=== PATIENT | male | born 1965 | race Caucasian/White ===

== ENCOUNTER → 2016-12-19 | Outpatient (CLI) | payer OTHER ==
[~2016-12-19] MED LIST: AMITRIPTYLINE H75 MG PO; ASPIR 8181 MG PO; COLACE 100MG C100 MG PO; HYDRALAZINE HCL25 MG PO; METOPROLOL SUCC25 MG PO; NORVASC 5 MG TAB5 MG PO; OMEGA 3 1,0001 EACH PO; PLAVIX 75 MG TA75 MG PO; PROTONIX40 MG PO; TRAZODONE HCL100 MG PO
== END ==
LOC: CARD REHAB 11-28 10:30
DX: I22.9 Subsequent ST elevation (STEMI) myocardial infarction of unspecified site (principal)

== ENCOUNTER → 2021-05-23 | Day surgery (SDC) | payer OTHER ==
[~2021-05-23] MED LIST changes: +CARAFATE1 GM PO; +CRESTOR20 MG PO; +CYCLOBENZAPRINE10 MG PO; +FLOMAX 0.4 MG0.4 MG PO; +FLONASE ALLER15.8 ML; +HYDROCODON-ACE1 EAC6 PO; +NEURONTIN800 MG PO; +OMEPRAZOLE20 M1 PO; +PROTONIX 40 MG40 M1 PO; +VENTOLIN HFA INH; +WAL-ZYR10 M1 PO
== END | disposition home or self-care (01) ==
LOC: OR 06:20
DX: C15.9 Malignant neoplasm of esophagus, unspecified (principal); I25.10 Atherosclerotic heart disease of native coronary artery without angina pectoris; I10 Essential (primary) hypertension; J44.9 Chronic obstructive pulmonary disease, unspecified; M19.90 Unspecified osteoarthritis, unspecified site; K21.9 Gastro-esophageal reflux disease without esophagitis; E78.5 Hyperlipidemia, unspecified; G47.30 Sleep apnea, unspecified; Z79.82 Long term (current) use of aspirin; Z79.51 Long term (current) use of inhaled steroids; Z79.899 Other long term (current) drug therapy; Z20.822 Contact with and (suspected) exposure to COVID-19; Z95.1 Presence of aortocoronary bypass graft
CPT/HCPCS: 71045; C1769; C1788; J0690; J1100; J1642; J1644; J2250; J2405; J3010; J7030; J7040; J7120

== ENCOUNTER 2021-07-30 12:05 | Inpatient (IN) | payer OTHER ==
[~2021-07-30] VITALS: Ht 180.3 cm; Wt 96.2 kg
[2021-07-30 13:22] LABS: HEMOGLOBIN 12.7 gm/dl (14.0-17.5); RED BLOOD COUNT 4.52 M/UL (4.20-5.50); WHITE BLOOD COUNT 11.5 K/UL (4.5-11.0)
[2021-07-30 13:46] LABS: BUN/CREATININE RATIO 28 (0-10)
[2021-07-30] MEDS ORDERED: PERCOCET 7.5-31 EACH PO (23:01)
[2021-07-30] MEDS ORDERED: FUROSEMIDE40 MG PO (23:03)
[2021-07-30] MEDS ORDERED: SERTRALINE HCL50 MG PO (23:03)
[2021-07-30] MEDS ORDERED: ONDANSETRON HCL8 MG PO (23:04)
[2021-07-30] MEDS ORDERED: PHENERGAN 25 MG25 M1 PO (23:05)
[2021-07-31 07:46] LABS: HEMOGLOBIN 11.3 gm/dl (14.0-17.5); RED BLOOD COUNT 4.15 M/UL (4.20-5.50); WHITE BLOOD COUNT 11.6 K/UL (4.5-11.0)
[2021-07-31 08:27] LABS: BUN/CREATININE RATIO 28 (0-10)
[2021-07-31] MEDS ORDERED: PROTONIX40 MG PO (12:36)
--- NOTE | 2021-07-31 19:09 | NUR ---
[facility] DID NOT ANSWER WHEN CALLED. RN LEFT CALL BACK NUMBER ON VOICEMAIL FOR THEM TO RETURN TO VERIFY PATIENT INFORMATION WAS OBTAINED VIA FAX.
== END 2021-07-31 19:41 | disposition home health service (06) | DRG 374 ==
LOC: ER1 12:05 → CDU 19:11 → MED SURG 4 22:12
PROVIDERS: Internal Medicine Gastroenterology; Student in an Organized Health Care Education/Training Program; ADMIT Internal Medicine
PROC: 0DC58ZZ Extirpation of Matter from Esophagus, Via Natural or Artificial Opening Endoscopic (ICD-10-PCS; principal; 2021-07-31 11:04)
DX: D00.1 Carcinoma in situ of esophagus (principal); K22.11 Ulcer of esophagus with bleeding; Z20.822 Contact with and (suspected) exposure to COVID-19; C78.7 Secondary malignant neoplasm of liver and intrahepatic bile duct; C77.9 Secondary and unspecified malignant neoplasm of lymph node, unspecified; D62 Acute posthemorrhagic anemia; I25.10 Atherosclerotic heart disease of native coronary artery without angina pectoris; M19.90 Unspecified osteoarthritis, unspecified site; K21.9 Gastro-esophageal reflux disease without esophagitis; R13.10 Dysphagia, unspecified; J44.9 Chronic obstructive pulmonary disease, unspecified; G47.33 Obstructive sleep apnea (adult) (pediatric); E78.5 Hyperlipidemia, unspecified; I10 Essential (primary) hypertension; Z93.1 Gastrostomy status; Z87.891 Personal history of nicotine dependence; Z80.1 Family history of malignant neoplasm of trachea, bronchus and lung; Z80.0 Family history of malignant neoplasm of digestive organs; Z80.8 Family history of malignant neoplasm of other organs or systems; Z79.82 Long term (current) use of aspirin; Z95.1 Presence of aortocoronary bypass graft
CPT/HCPCS: 70491; 80053; 81001; 85025; 85610; 86850; 86900; 86901; 93005; 96374; 96375; 99285; C9113; J1642; J2250; J2270; J2405; J2550; J2704; J3010; J7030; J7040; Q9967; U0002